=== PATIENT | female | born 1945 | race Caucasian/White ===

== ENCOUNTER 2022-05-02 06:02 | Day surgery (SDC) | payer MEDICARE, OTHER ==
[~2022-05-02 06:02] MED LIST: Acetaminophen 325 MG Tab PO SCH; Lidocaine 1%/Sod Bicarbonate in NS 8.4% 1 ML Syringe IDERM PRN; Morphine 8 MG, EPINEPHrine 0.3 MG, Cefuroxime 750 MG, Ketorolac 30 MG, Sodium Chloride ... PRN; Pregabalin 25 MG Cap PO SCH; oxyCODONE ER 10 MG TAB.ER PO SCH
[2022-05-02] MEDS ORDERED: Ropivacaine 0.5% 5 MG/ML 30 ML SDV ONE (06:14)
[2022-05-02] MEDS ORDERED: EPINEPHrine 1 MG/ML SDV ONE (06:14)
[2022-05-02] MEDS: Lactated Ringers 1,000 ML IV SCH ×2 (06:15→09:35)
[2022-05-02] MEDS ORDERED: Vancomycin 1 GM SDV ONE ×2 (06:22→07:03)
[2022-05-02] MEDS ORDERED: Tranexamic Acid 1,000 MG/10 ML Vial ONE ×2 (06:22→07:03)
[2022-05-02] MEDS ORDERED: Propofol 200 MG/20 ML SDV ONE ×2 (06:24)
[2022-05-02] MEDS ORDERED: HYDROmorphone 0.5 MG/0.5 ML Syringe IVPUSH PRN (06:25)
[2022-05-02] MEDS ORDERED: Ondansetron 4 MG/2 ML SDV IVPUSH PRN (06:25)
[2022-05-02] MEDS ORDERED: fentaNYL 100 MCG/2 ML SDV IVPUSH PRN (06:25)
[2022-05-02] MEDS ORDERED: Midazolam 1 MG/ML 2 ML SDV ONE (06:28)
[2022-05-02] MEDS ORDERED: Ondansetron 4 MG/2 ML SDV ONE (06:29)
[2022-05-02] MEDS ORDERED: ceFAZolin 2 GM Vial ONE (06:30)
[2022-05-02] MEDS ORDERED: ePHEDrine 50 MG/ML SDV ONE (07:38)
[2022-05-02] MEDS ORDERED: Dexmedetomidine 200 MCG/2 ML SDV ONE (07:52)
[2022-05-02] MEDS ORDERED: Lactated Ringers 1,000 ML ONE (07:52)
[2022-05-02] MEDS ORDERED: Ketorolac 15 MG/ML SDV ONE (08:19)
[2022-05-02] MEDS ORDERED: fentaNYL 100 MCG/2 ML SDV ONE (08:21)
[2022-05-02] MEDS ORDERED: Sodium Chloride 0.9% 10 ML Syringe FLUSH PRN (08:31)
[2022-05-02] MEDS ORDERED: Promethazine 6.25 MG in Sodium Chloride 0.9% 50 ML IV ONE (11:15)
[2022-05-02] MEDS ORDERED: Acetaminophen/HYDROcodone 325-5 MG Tab PO PRN (13:48)
[2022-05-02] MEDS ORDERED: diphenhydrAMINE 50 MG/ML SDV IVPUSH PRN (14:10)
== END 2022-05-02 15:03 | disposition home or self-care (01) ==
LOC: JD.SDS 06:02
PROVIDERS: ATTEND Orthopaedic Surgery
DX: M17.12 Unilateral primary osteoarthritis, left knee (principal); I10 Essential (primary) hypertension; E78.5 Hyperlipidemia, unspecified; J30.9 Allergic rhinitis, unspecified; M81.0 Age-related osteoporosis without current pathological fracture; Z88.8 Allergy status to other drugs, medicaments and biological substances; Z79.899 Other long term (current) drug therapy; Z79.82 Long term (current) use of aspirin; Z90.49 Acquired absence of other specified parts of digestive tract; Z98.890 Other specified postprocedural states; Z96.643 Presence of artificial hip joint, bilateral
CPT/HCPCS: 01402; 64450; 73560-26-LT; 73560-LT; 76942; 97110-GP; 97116-GP; 97161-GP; 99100; A9270-GY; C1713; C1776; J0171; J0690; J0697; J1885; J2250; J2270; J2405; J2550; J2704; J2795; J3010; J3370; J7120

== ENCOUNTER 2023-02-22 06:58 | Day surgery (SDC) | payer MEDICARE, OTHER ==
[~2023-02-22 06:58] MED LIST changes: -Acetaminophen 325 MG Tab PO SCH; +EPINEPHrine 1 MG/ML SDV ONE; +Lactated Ringers 1,000 ML IV SCH; -Lidocaine 1%/Sod Bicarbonate in NS 8.4% 1 ML Syringe IDERM PRN; -Morphine 8 MG, EPINEPHrine 0.3 MG, Cefuroxime 750 MG, Ketorolac 30 MG, Sodium Chloride ... PRN; -Pregabalin 25 MG Cap PO SCH; +Ropivacaine 0.5% 5 MG/ML 30 ML SDV ONE; +Sodium Chloride 0.9% 10 ML Syringe FLUSH PRN; +Sodium Chloride 0.9% 10 ML Syringe FLUSH SCH; -oxyCODONE ER 10 MG TAB.ER PO SCH
[2023-02-22] MEDS ORDERED: Lidocaine 1% 5 ML VIAL ONE (08:01)
[2023-02-22] MEDS ORDERED: Propofol 200 MG/20 ML SDV ONE (08:02)
[2023-02-22] MEDS ORDERED: Dexamethasone 4 MG/ML 5 ML MDV ONE (08:02)
[2023-02-22] MEDS ORDERED: ceFAZolin 2 GM Vial ONE (08:02)
[2023-02-22] MEDS ORDERED: Midazolam 1 MG/ML 2 ML SDV ONE (08:02)
[2023-02-22] MEDS ORDERED: Ondansetron 4 MG/2 ML SDV ONE ×2 (08:02→08:56)
[2023-02-22] MEDS ORDERED: fentaNYL 100 MCG/2 ML SDV ONE (08:02)
[2023-02-22 08:03] LABS: INR 0.97; PROTHROMBIN TIME 10.4 SECONDS (9.7-12.0)
[2023-02-22 08:04] LABS: PTT,PARTIAL THROMBOPLSTIN TIME 28.9 SECONDS (21.7-31.4)
[2023-02-22] MEDS ORDERED: Scopolamine 1.5 MG Transdermal Patch TOP ONE (08:10)
[2023-02-22] MEDS ORDERED: Scopolamine 1.5 MG Transdermal Patch TOP SCH (08:15)
[2023-02-22] MEDS: Morphine 8 MG, EPINEPHrine 0.3 MG, Cefuroxime 750 MG, Ketorolac 30 MG, Sodium Chloride ... PRN ×10 (08:22→10:02)
[2023-02-22] MEDS: Tranexamic Acid 1,000 MG/10 ML Vial ONE ×2 (08:22→10:09)
[2023-02-22] MEDS: Vancomycin 1 GM SDV ONE ×2 (08:22→10:09)
[2023-02-22] MEDS ORDERED: diphenhydrAMINE 50 MG/ML SDV ONE (08:31)
[2023-02-22] MEDS ORDERED: Lactated Ringers 1,000 ML ONE ×2 (08:44→10:19)
[2023-02-22] MEDS ORDERED: Ondansetron 4 MG/2 ML SDV IVPUSH PRN (08:48)
[2023-02-22] MEDS ORDERED: fentaNYL 100 MCG/2 ML SDV IVPUSH PRN (08:48)
[2023-02-22] MEDS ORDERED: HYDROmorphone 0.5 MG/0.5 ML Syringe IVPUSH PRN (08:48)
[2023-02-22] MEDS ORDERED: Dexmedetomidine 200 MCG/2 ML SDV ONE (08:56)
[2023-02-22] MEDS ORDERED: ePHEDrine 50 MG/ML SDV ONE (09:09)
[2023-02-22] MEDS ORDERED: Ketorolac 15 MG/ML SDV ONE (10:09)
[2023-02-22] MEDS ORDERED: Acetaminophen/HYDROcodone 325-5 MG Tab PO ONE (12:15)
== END 2023-02-22 14:10 | disposition home or self-care (01) ==
LOC: JD.SDS 06:58
PROVIDERS: ATTEND Orthopaedic Surgery
DX: M17.11 Unilateral primary osteoarthritis, right knee (principal); E78.5 Hyperlipidemia, unspecified; I10 Essential (primary) hypertension; E78.00 Pure hypercholesterolemia, unspecified; R01.1 Cardiac murmur, unspecified; M81.0 Age-related osteoporosis without current pathological fracture; Z88.8 Allergy status to other drugs, medicaments and biological substances; Z79.82 Long term (current) use of aspirin; Z79.899 Other long term (current) drug therapy; Z96.649 Presence of unspecified artificial hip joint; Z96.652 Presence of left artificial knee joint
CPT/HCPCS: 0055T; 27447; 36415; 64447; 73560; 85610; 85730; 97116; 97161; A9270; C1713; C1776; J0171; J0690; J0697; J1100; J1200; J1885; J2250; J2270; J2405; J2704; J2795; J3370; J7030; J7120; 01402; 99100; J3010; J3490

== ENCOUNTER 2023-05-02 06:51 | Day surgery (SDC) | payer MEDICARE, OTHER ==
[~2023-05-02 06:51] MED LIST changes: -EPINEPHrine 1 MG/ML SDV ONE; -Ropivacaine 0.5% 5 MG/ML 30 ML SDV ONE
[2023-05-02] MEDS ORDERED: Lidocaine 1% 6 ML ONE (07:39)
[2023-05-02] MEDS ORDERED: Propofol 200 MG/20 ML SDV ONE (07:39)
[2023-05-02] MEDS ORDERED: fentaNYL 100 MCG/2 ML SDV ONE (07:39)
== END 2023-05-02 09:42 | disposition home or self-care (01) ==
LOC: JD.SDS 06:51
PROVIDERS: ATTEND Specialist
DX: K57.30 Diverticulosis of large intestine without perforation or abscess without bleeding (principal); I10 Essential (primary) hypertension; E78.00 Pure hypercholesterolemia, unspecified; Z86.16 Personal history of COVID-19; Z98.51 Tubal ligation status; Z79.82 Long term (current) use of aspirin; Z79.899 Other long term (current) drug therapy; Z88.8 Allergy status to other drugs, medicaments and biological substances
CPT/HCPCS: 45378; J2704; J3010; J7120; 00811; 99100; J3490

== ENCOUNTER 2024-10-23 18:33 | Emergency (ER) | payer MEDICARE, OTHER ==
[2024-10-23] MEDS: Sodium Chloride 0.9% 1,000 ML IV STA (19:04)
[2024-10-23] MEDS: Sodium Chloride 0.9% 10 ML Syringe FLUSH PRN (19:04)
[2024-10-23 19:29] LABS: BASOPHILS PERCENT AUTO 0.7 % (0.0-1.0); EOSINOPHILS ABSOLUTE AUTO 0.1 K/mm3 (0.0-0.4); EOSINOPHILS PERCENT AUTO 3.1 % (0.0-6.0); HEMATOCRIT 33.4 % (37.0-47.0); HEMOGLOBIN 10.9 gm/dl (12.0-16.0); LYMPHOCYTES ABSOLUTE AUTO 1.5 K/mm3 (1.0-4.8); MEAN CORPUSCULAR HEMOGLOBIN 29.9 pg (28.0-32.0); MEAN CORPUSCULAR HGB CONC 32.6 g/dl (32.0-36.0); MEAN CORPUSCULAR VOLUME 91.8 fl (83.0-99.0); MEAN PLATELET VOLUME 8.5 fl (9.4-12.3); MONOCYTES ABSOLUTE AUTO 0.3 K/mm3 (0.0-0.8); MONOCYTES PERCENT AUTO 6.7 % (0.0-8.0); NEUTROPHILS ABSOLUTE AUTO 2.5 K/mm3 (1.8-7.7); NEUTROPHILS PERCENT AUTO 56.5 % (41.0-71.0); PLATELET COUNT,PLT 260 K/mm3 (150-400); RED BLOOD CELL COUNT 3.64 M/mm3 (4.10-5.30); WHITE BLOOD CELL COUNT,WBC 4.48 K/mm3 (3.9-11.3)
[2024-10-23 19:50] LABS: A/G RATIO 1.3 (1-2); ALBUMIN 3.5 g/dl (3.4-5.0); ANION GAP 13.4 (5-15); BILIRUBIN TOTAL 0.3 mg/dL (0.2-1.0); BUN/CREATININE RATIO 14.3 (14-18); CALCIUM 8.6 mg/dL (8.5-10.1); CREATININE 0.7 mg/dL (0.55-1.02); EST CRCL DRUG DOSING (CG) 58.64 mL/min; MAGNESIUM 1.8 mg/dL (1.8-2.4); POTASSIUM,K 3.4 mEq/L (3.5-5.1); PROTEIN TOTAL,TP 6.3 g/dl (6.4-8.2)
== END 2024-10-23 20:25 | disposition home or self-care (01) ==
LOC: JD.ED 18:33
DX: R55 Syncope and collapse (principal); I10 Essential (primary) hypertension; E78.00 Pure hypercholesterolemia, unspecified; M19.90 Unspecified osteoarthritis, unspecified site; Z88.8 Allergy status to other drugs, medicaments and biological substances; Z79.899 Other long term (current) drug therapy; Z90.49 Acquired absence of other specified parts of digestive tract; Z52.000 Unspecified donor, whole blood
CPT/HCPCS: 36415; 70450; 80053; 83735; 85025; 93005; 96360; 99285; J7030; 93010; 99284